=== PATIENT | male | born 1950 | race African-American/Black ===

== ENCOUNTER 2024-08-21 08:05 | Day surgery (SDC) | payer OTHER, MEDICAID ==
[~2024-08-21] VITALS: Ht 165.1 cm; Wt 75.7 kg
[~2024-08-21 08:05] MED LIST: FentaNYL CITRATE PF 100 MCG/2 ML VIAL ONE; KETOROLAC TROMETHAMINE 0.5% 5 ML OPHTHALMIC SOLUTION ONE; MIDAZOLAM HCL 2 MG/2 ML VIAL ONE; MOXIFLOXACIN HCL 0.5% 3 ML OPHTHALMIC SOLUTION ONE; PHENYLEPHRINE HCL 2.5% 2 ML OPHTHALMIC SOLUTION ONE; RINGERS SOLUTION,LACTATED 500 ML IV ONE; TROPICAMIDE 1% 2 ML OPHTHALMIC SOLUTION ONE
[2024-08-21] MEDS ORDERED: CHONDR SULF A SOD/HYALURONATE 1.05 ML KIT IO ONE (08:06)
[2024-08-21] MEDS: MOXIFLOXACIN HCL 0.5% 3 ML OPHTHALMIC SOLUTION OS SCH (08:54)
[2024-08-21] MEDS: PHENYLEPHRINE HCL 2.5% 2 ML OPHTHALMIC SOLUTION OS SCH (08:54)
[2024-08-21] MEDS: TROPICAMIDE 1% 2 ML OPHTHALMIC SOLUTION OS SCH (08:54)
[2024-08-21] MEDS: KETOROLAC TROMETHAMINE 0.5% 5 ML OPHTHALMIC SOLUTION OS SCH (08:56)
[2024-08-21] MEDS: RINGERS SOLUTION,LACTATED 500 ML IV ONE (09:11)
[2024-08-21] MEDS: TETRACAINE HCL/PF 0.5% 4 ML OPHTHALMIC SOLUTION ONE (09:20)
[2024-08-21] MEDS: BALANCED SALT 15 ML OPHTHALMIC IRRIG.SOLN ONE (09:29)
[2024-08-21] MEDS: EPINEPHrine 1:1,000 [1 MG/ML] VIAL ONE (09:29)
[2024-08-21] MEDS: POVIDONE-IODINE 5% 30 ML OPHTHALMIC SOLUTION ONE (09:30)
[2024-08-21] MEDS: LIDOCAINE/PF 1% 2 ML VIAL ONE (09:30)
[2024-08-21 10:20] LABS: GLUCOMETER DEV NAME(LOC) SDS.; GLUCOSE,POINT OF CARE 128 MG/DL (70-110)
[2024-08-21] MEDS ORDERED: CARV6.25 PO (10:27)
[2024-08-21] MEDS ORDERED: HYDR25TA68 PO (10:27)
[2024-08-21] MEDS ORDERED: ESCI-8 PO (10:27)
[2024-08-21] MEDS ORDERED: SENN-395 PO (10:27)
[2024-08-21] MEDS ORDERED: NIFE10CA50 PO (10:27)
[2024-08-21] MEDS ORDERED: ATOR40TA28 PO (10:27)
[2024-08-21] MEDS ORDERED: CALC0.253 PO (10:27)
[2024-08-21] MEDS ORDERED: PANT-31 PO (10:27)
[2024-08-21] MEDS ORDERED: TRAZ-252 PO (10:27)
[2024-08-21] MEDS ORDERED: BUME1TAB50 PO (10:27)
[2024-08-21] MEDS ORDERED: GABA-1216 PO (10:27)
[2024-08-21] MEDS ORDERED: MELA5TAB40 PO (10:27)
[2024-08-21] MEDS ORDERED: CALC-613 PO (10:27)
[2024-08-21] MEDS ORDERED: TAMS0.4C94 PO (10:27)
== END 2024-08-21 12:25 | disposition home or self-care (01) ==
LOC: SURGERY 08:05
PROVIDERS: ATTEND Ophthalmology
DX: E11.36 Type 2 diabetes mellitus with diabetic cataract (principal); H25.12 Age-related nuclear cataract, left eye; F41.9 Anxiety disorder, unspecified; E11.22 Type 2 diabetes mellitus with diabetic chronic kidney disease; N18.6 End stage renal disease; Z86.718 Personal history of other venous thrombosis and embolism; J44.9 Chronic obstructive pulmonary disease, unspecified; Z79.899 Other long term (current) drug therapy; Z20.822 Contact with and (suspected) exposure to COVID-19
CPT/HCPCS: 66984; 82962; 93005; J7321; J0171; J3010; J3490; J2250; J7120; V2632